=== PATIENT | female | born 1965 | race Caucasian/White ===

== ENCOUNTER → 2021-03-30 14:00 | Outpatient (CLI) | payer BC, OTHER, SELFPAY ==
--- NOTE | ~2021-03-30 | CT_ITS ---
EXAMINATION: CT brain wo con DATE: 03/30/2021 14:28 INDICATION: Stabbing headache. Migraine with aura. TECHNIQUE: Computed tomography (CT) of the head was performed without intravenous contrast. The mA wa s adjusted according to patient size. Iterative reconstruction technique was employed. Exam dose: 59 9.57 mGy-cm total exam DLP. COMPARISON: None FINDINGS: No intracranial mass lesion or hemorrhage or cerebrovascular accident. No midline shift or mass effect. Normal ventricular size. Normal khan-white matter differentiation. No subdural or epidur al hematoma. Mastoid air cells and included paranasal sinuses are normally developed and aerated. No fracture or bone destruction of the cranial vault. IMPRESSION: Negative Reviewed, dictated and finalized at [facility]. Reviewed, dictated and finalized at [facility]. IMPRESSION: Negative
== END ==
PROVIDERS: PCP Family Medicine; Visit Provider Family Medicine
DX: G44.85 Primary stabbing headache (principal); G43.109 Migraine with aura, not intractable, without status migrainosus
CPT/HCPCS: 70450